=== PATIENT | female | born 1985 | race American Indian/Alaskan Native ===

== ENCOUNTER 2017-05-14 14:43 | Emergency (ER) | payer SELFPAY ==
--- NOTE | 2017-05-14 15:07 | Emergency Department Report ---
ED Dysuria HPI - HPI Chief Complaint: Urogenital-Female Stated Complaint: STD OUTBREAK Time Seen by Provider: 05/14/17 15:01 Duration: 2 Days Severity: Mild Symptoms: Dysuria: No, Frequency: No, Suprapubic Pain: No, Flank Pain: No, Fever : No, Hematuria: No, Abdominal Pain: No, Previous UTI's: No ED Review of Systems ROS: Stated complaint: STD OUTBREAK Other details as noted in HPI Comment: Unobtainable due to pts medical conditions Constitutional: no symptoms reported, see HPI. denies: chills, fever Eyes: as per HPI. denies: eye pain ENT: as per HPI. denies: ear pain, throat pain Respiratory: no symptoms reported, see HPI. denies: cough, orthopnea Cardiovascular: as per HPI. denies: chest pain, palpitations, orthopnea Endocrine: no symptoms reported, see HPI. denies: excessive sweating, flushing , intolerance to cold, intolerance to heat Gastrointestinal: as per HPI. denies: abdominal pain, nausea, vomiting Genitourinary: as per HPI. denies: urgency, dysuria Musculoskeletal: as per HPI. denies: back pain Skin: as per HPI, lesions Neurological: as per HPI. denies: headache, weakness Psychiatric: as per HPI. denies: anxiety, depression Hematological/Lymphatic: as per HPI. denies: easy bleeding ED Past Medical Hx - Past Medical History Previous Medical History?: Yes Hx Seizures: Yes (no meds) Additional medical history: GENITAL HERPES - Surgical History Past Surgical History?: No - Social History Smoking Status: Current Every Day Smoker Substance Use Type: Alcohol - Medications Home Medications: Home Medications Medication Instructions Recorded Confirmed Last Taken Type Acyclovir [Acyclovir Ointment] 1 applicatio TP 5XD #1 tube 05/14/17 Unknown Rx Acyclovir [Zovirax Cap] 200 mg PO 5XD #25 cap 05/14/17 Unknown Rx Dysuria Exam - Exam General: Vital signs noted. No distress. Alert and acting appropriately. KNOWN GENITAL HERPES W OUTBREAK HERE FOR MED REFILL Exam: Yes Moist Mucous Membranes, No CVA Tenderness, No Abdominal Tenderness, No Rigidity or Guarding ED Course Vital Signs 05/14/17 14:47 Temperature 98 F Pulse Rate 80 Respiratory 20 Rate Blood Pressure 170/100 O2 Sat by Pulse 100 Oximetry - Reevaluation(s) Reevaluation #1: 05/14/17 15:13 KNOWN GEN HERPES DX 12-16 ED Medical Decision Making - Medical Decision Making CHRONIC MED REFILL Critical care attestation.: If time is entered above; I have spent that time in minutes in the direct care of this critically ill patient, excluding procedure time. ED Disposition Clinical Impression: Genital herpes Disposition: DC-01 TO HOME OR SELFCARE Is pt being admited?: No Does the pt Need Aspirin: No Condition: Stable Instructions: Genital Herpes Simplex (ED) Additional Instructions: FOLLOW UP WITH PCP OR OB FOR SUPPRESSIVE TREATMENT Prescriptions: Acyclovir [Acyclovir Ointment] 1 applicatio TP 5XD #1 tube Acyclovir [Zovirax Cap] 200 mg PO 5XD #25 cap Referrals: JANNETH SHARMA MD [Referring] - 3-5 Days Time of Disposition: 15:10
[2017-05-14 15:24] VITALS: BP 156/96
== END 2017-05-14 15:24 | disposition home or self-care (01) ==
LOC: ED 14:43
DX: A60.00 Herpesviral infection of urogenital system, unspecified (principal); F17.200 Nicotine dependence, unspecified, uncomplicated
CPT/HCPCS: 99282

== ENCOUNTER 2017-05-20 20:45 | Emergency (ER) | payer OTHER ==
[2017-05-20] MEDS ORDERED: ATIVAN ONE (20:52)
[2017-05-20 21:06] LABS: Basophils % (Auto) 0.1 % (0.0-1.8); Eosinophils % (Auto) 0.8 % (0.0-4.3); Hematocrit 40.4 % (30.3-42.9); Hemoglobin 13.2 gm/dl (10.1-14.3); Mean Corpuscular HGB Conc 33 % (30-34); Mean Corpuscular Hemoglobin 28 pg (28-32); Mean Corpuscular Volume 86 fl (79-97); Platelet Count 481 K/mm3 (140-440); Red Blood Count 4.69 M/mm3 (3.65-5.03); Red Cell Distribution Width 15.5 % (13.2-15.2); White Blood Count 14.3 K/mm3 (4.5-11.0)
[2017-05-20] MEDS ORDERED: ATIVAN IV ONE (21:10)
[2017-05-20 21:16] LABS: INR 0.96 (0.87-1.13)
[2017-05-20 21:22] LABS: Anion Gap 15 mmol/L; BUN/Creatinine Ratio 13; Blood Urea Nitrogen 9 mg/dL (7-17); Calcium 9.2 mg/dL (8.4-10.2); Carbon Dioxide 30 mmol/L (22-30); Chloride 100.7 mmol/L (98-107); Glucose 312 mg/dL (65-100); Potassium 4.2 mmol/L (3.6-5.0); Sodium 141 mmol/L (137-145)
--- NOTE | 2017-05-20 21:27 | Cat Scan Report ---
FINAL REPORT EXAM: CT HEAD/BRAIN WO CON HISTORY: neuro deficits \T\lt; 6hrs or sx present upon awakening TECHNIQUE: CT head without contrast PRIORS: None. FINDINGS: No acute intra-axial or extra-axial hemorrhage is identified. There is no evidence of midline shift or mass effect. The ventricles and sulci are within normal limits. Peters-white matter differentiation is intact. No acute parenchymal abnormalities seen. Bony calvarium is grossly intact. Visualized portions of the mastoids and paranasal sinuses are unremarkable. IMPRESSION: Negative CT head
[2017-05-20] MEDS ORDERED: MORPHINE IV ONE (21:36)
--- NOTE | 2017-05-20 22:20 | Emergency Department Report ---
ED General Adult HPI - General Chief complaint: Seizure Stated complaint: SEIZURE Time Seen by Provider: 05/20/17 21:33 Source: patient, family Mode of arrival: Stretcher Limitations: Physical Limitation - History of Present Illness Initial comments: Patient is a 32-year-old female past medical history of seizures who presents with seizures and left-sided weakness. Patient recently had a seizure today and afterwards she was having left arm weakness. Patient states that she's had multiple seizures in the past however she has not been on any medication for her seizures because she is not employed and has no insurance. Patient states that she has some generalized body pain as a 7 out of 10 is an achy type of pain nothing makes the pain better or worse she denies having any nausea or vomiting. Patient's weakness she states is severe she is able to feel her arm but she is not able to move it. - Related Data Previous Rx's Medication Instructions Recorded Last Taken Type Acyclovir [Acyclovir Ointment] 1 applicatio TP 5XD #1 tube 05/14/17 Unknown Rx Acyclovir [Zovirax Cap] 200 mg PO 5XD #25 cap 05/14/17 Unknown Rx Allergies Allergy/AdvReac Type Severity Reaction Status Date / Time No Known Allergies Allergy Unverified 05/14/17 14:51 ED Review of Systems ROS: Stated complaint: SEIZURE Other details as noted in HPI Constitutional: denies: chills, fever Eyes: denies: eye pain, eye discharge, vision change ENT: denies: ear pain, throat pain Respiratory: denies: cough, shortness of breath, wheezing Cardiovascular: denies: chest pain, palpitations Endocrine: no symptoms reported Gastrointestinal: denies: abdominal pain, nausea, diarrhea Genitourinary: denies: urgency, dysuria, discharge Musculoskeletal: denies: back pain, joint swelling, arthralgia Skin: denies: rash, lesions Neurological: weakness, other (seizure ). denies: headache, paresthesias Psychiatric: denies: anxiety, depression Hematological/Lymphatic: denies: easy bleeding, easy bruising ED Past Medical Hx - Past Medical History Previous Medical History?: Yes Hx Hypertension: Yes Hx Seizures: Yes (no meds) Additional medical history: GENITAL HERPES - Surgical History Past Surgical History?: No - Social History Smoking Status: Current Every Day Smoker Substance Use Type: Marijuana - Medications Home Medications: Home Medications Medication Instructions Recorded Confirmed Last Taken Type Acyclovir [Acyclovir Ointment] 1 applicatio TP 5XD #1 tube 05/14/17 Unknown Rx Acyclovir [Zovirax Cap] 200 mg PO 5XD #25 cap 05/14/17 Unknown Rx ED Physical Exam - General Limitations: Physical Limitation General appearance: alert, in no apparent distress - Head Head exam: Present: atraumatic, normocephalic - Eye Eye exam: Present: normal appearance - ENT ENT exam: Present: mucous membranes moist - Neck Neck exam: Present: normal inspection - Respiratory Respiratory exam: Present: normal lung sounds bilaterally. Absent: respiratory distress - Cardiovascular Cardiovascular Exam: Present: regular rate, normal rhythm. Absent: systolic murmur, diastolic murmur, rubs, gallop - GI/Abdominal GI/Abdominal exam: Present: soft, normal bowel sounds - Extremities Exam Extremities exam: Present: other (patient is unable to move upper left extremity she is able to feel but not able to move Bowser patient is able to withdraw extremities to pain pulses are +2. Refill rest of the extremities or able to move and the rest of her extremities are neurovascularly intact) - Back Exam Back exam: Present: normal inspection - Neurological Exam Neurological exam: Present: alert, oriented X3 - Psychiatric Psychiatric exam: Present: normal affect, normal mood - Skin Skin exam: Present: warm, dry, intact, normal color. Absent: rash ED Course Vital Signs 05/20/17 05/20/17 05/20/17 21:07 21:12 21:15 Temperature 99.2 F Pulse Rate 101 H 96 H 101 H Respiratory 17 18 18 Rate Blood Pressure 136/89 136/89 O2 Sat by Pulse 99 96 98 Oximetry 05/20/17 22:00 Temperature Pulse Rate 100 H Respiratory 21 Rate Blood Pressure 133/102 O2 Sat by Pulse 97 Oximetry ED Medical Decision Making - Lab Data Result diagrams: 05/20/17 20:55 05/20/17 20:55 Lab Results 05/20/17 05/20/17 05/20/17 Range/Units 20:55 20:55 20:55 WBC 14.3 H (4.5-11.0) K/mm3 RBC 4.69 (3.65-5.03) M/mm3 Hgb 13.2 (10.1-14.3) gm/dl Hct 40.4 (30.3-42.9) % MCV 86 (79-97) fl MCH 28 (28-32) pg MCHC 33 (30-34) % RDW 15.5 H (13.2-15.2) % Plt Count 481 H (140-440) K/mm3 Lymph % (Auto) 27.4 (13.4-35.0) % [place] % (Auto) 5.6 (0.0-7.3) % Eos % (Auto) 0.8 (0.0-4.3) % Baso % (Auto) 0.1 (0.0-1.8) % Lymph # 3.9 (1.2-5.4) K/mm3 [place] # 0.8 (0.0-0.8) K/mm3 Eos # 0.1 (0.0-0.4) K/mm3 Baso # 0.0 (0.0-0.1) K/mm3 Seg Neutrophils % 66.1 (40.0-70.0) % Seg Neutrophils # 9.4 H (1.8-7.7) K/mm3 PT 13.3 (12.2-14.9) Sec. INR 0.96 (0.87-1.13) APTT 33.0 (24.2-36.6) Sec. Thrombin Time (15.1-19.6) Sec. Sodium 141 (137-145) mmol/L Potassium 4.2 (3.6-5.0) mmol/L Chloride 100.7 (98-107) mmol/L Carbon Dioxide 30 (22-30) mmol/L Anion Gap 15 mmol/L BUN 9 (7-17) mg/dL Creatinine 0.7 (0.7-1.2) mg/dL Estimated GFR > 60 ml/min BUN/Creatinine Ratio 13 % Glucose 312 H (65-100) mg/dL POC Glucose (70-105) Calcium 9.2 (8.4-10.2) mg/dL Troponin T < 0.010 (0.00-0.029) ng/mL HCG, Qual (Negative) 05/20/17 05/20/17 05/20/17 Range/Units 20:55 20:55 20:58 WBC (4.5-11.0) K/mm3 RBC (3.65-5.03) M/mm3 Hgb (10.1-14.3) gm/dl Hct (30.3-42.9) % MCV (79-97) fl MCH (28-32) pg MCHC (30-34) % RDW (13.2-15.2) % Plt Count (140-440) K/mm3 Lymph % (Auto) (13.4-35.0) % [place] % (Auto) (0.0-7.3) % Eos % (Auto) (0.0-4.3) % Baso % (Auto) (0.0-1.8) % Lymph # (1.2-5.4) K/mm3 [place] # (0.0-0.8) K/mm3 Eos # (0.0-0.4) K/mm3 Baso # (0.0-0.1) K/mm3 Seg Neutrophils % (40.0-70.0) % Seg Neutrophils # (1.8-7.7) K/mm3 PT (12.2-14.9) Sec. INR (0.87-1.13) APTT (24.2-36.6) Sec. Thrombin Time 16.5 (15.1-19.6) Sec. Sodium (137-145) mmol/L Potassium (3.6-5.0) mmol/L Chloride (98-107) mmol/L Carbon Dioxide (22-30) mmol/L Anion Gap mmol/L BUN (7-17) mg/dL Creatinine (0.7-1.2) mg/dL Estimated GFR ml/min BUN/Creatinine Ratio % Glucose (65-100) mg/dL POC Glucose 311 H (70-105) Calcium (8.4-10.2) mg/dL Troponin T (0.00-0.029) ng/mL HCG, Qual Negative (Negative) - EKG Data 05/20/17 23:45 EKG shows sinus rhythm possible left atrial enlargement no ST segment elevations or T-wave inversions. - Radiology Data Radiology results: report reviewed, image reviewed CT head: Shows no acute intracranial pathology - Medical Decision Making Chief medical diagnosis: Thanh's paralysis Differential medical diagnosis: Epilepsy, hyperglycemia, hyponatremia, UTI, TIA UA, CT head, CBC, CMP, EKG, IV pain medication, IV fluids, IV Keppra CT scan of head and all laboratory blood work. Patient is able to move her left extremity she's standing and she wants to leave AMA patient states that she is in too much pain and that she wants to sign out AMA. Discussed with patient the risks and benefits of leaving AMA. Discussed with patient that she needs follow-up with neurologist and gave patient referral. Patient stomped out and states "I don't want her papers." Patient refuses to have any further discussion. Critical care attestation.: If time is entered above; I have spent that time in minutes in the direct care of this critically ill patient, excluding procedure time. ED Disposition Clinical Impression: Seizures, Thanh's paralysis, Generalized pain Disposition: DC-07 LEFT AGAINST MED ADVICE Is pt being admited?: No Does the pt Need Aspirin: No Condition: Stable Referrals: RADHA LOZADA MD [Staff Physician] - 3-5 Days Forms: AMA Form
[2017-05-20 22:25] VITALS: BP 133/102
== END 2017-05-20 22:20 | disposition left against medical advice (07) ==
LOC: ED 20:45
DX: G83.84 Todd's paralysis (postepileptic) (principal); R56.9 Unspecified convulsions; I10 Essential (primary) hypertension; F17.210 Nicotine dependence, cigarettes, uncomplicated; F12.10 Cannabis abuse, uncomplicated
CPT/HCPCS: 36415; 70450; 80048; 82962; 84484; 84703; 85025; 85610; 85670; 85730; 93005; 93010; 96374; 99285; J2060

== ENCOUNTER 2017-08-31 18:26 | Emergency (ER) | payer SELFPAY ==
[2017-08-31 18:51] VITALS: BP 161/96
[2017-08-31 19:15] LABS: Basophils # (Auto) 0.1 K/mm3 (0.0-0.1); Basophils % (Auto) 0.6 % (0.0-1.8); Eosinophils # (Auto) 0.1 K/mm3 (0.0-0.4); Eosinophils % (Auto) 0.3 % (0.0-4.3); Hematocrit 42.5 % (30.3-42.9); Lymphocytes # (Auto) 3.1 K/mm3 (1.2-5.4); Mean Corpuscular HGB Conc 33 % (30-34); Mean Corpuscular Hemoglobin 29 pg (28-32); Mean Corpuscular Volume 88 fl (79-97); Monocytes # (Auto) 1.2 K/mm3 (0.0-0.8); Monocytes % (Auto) 6.4 % (0.0-7.3); Platelet Count 513 K/mm3 (140-440); Red Blood Count 4.84 M/mm3 (3.65-5.03); Red Cell Distribution Width 14.7 % (13.2-15.2)
[2017-08-31 19:29] LABS: BUN/Creatinine Ratio 15; Blood Urea Nitrogen 9 mg/dL (7-17); Calcium 9.9 mg/dL (8.4-10.2); Hemolysis Index 7
[2017-08-31 21:04] LABS: Bilirubin,Urine NEG (Negative); Blood,Urine NEG (Negative); Color,Urine Yellow (Yellow); Mucus,Urine FEW /HPF; Nitrite,Urine NEG (Negative); Protein,Urine <15 mg/dL mg/dL (Negative); Urobilinogen,Urine < 2.0 mg/dL (<2.0)
[2017-09-01] MEDS ORDERED: XYLOCAINE 1% 20 mL ONE (16:02)
== END 2017-08-31 22:00 | disposition left against medical advice (07) ==
LOC: ED 18:26
DX: L02.426 Furuncle of left lower limb (principal); Z53.21 Procedure and treatment not carried out due to patient leaving prior to being seen by health care provider
CPT/HCPCS: 36415; 80048; 81001; 85025

== ENCOUNTER 2017-09-01 01:04 | Inpatient (IN) | payer OTHER ==
[2017-09-01 02:00] LABS: Basophils # (Auto) 0.2 K/mm3 (0.0-0.1); Basophils % (Auto) 1.3 % (0.0-1.8); Eosinophils # (Auto) 0.1 K/mm3 (0.0-0.4); Eosinophils % (Auto) 0.3 % (0.0-4.3); Hematocrit 41.7 % (30.3-42.9); Hemoglobin 13.7 gm/dl (10.1-14.3); Lymphocytes # (Auto) 3.1 K/mm3 (1.2-5.4); Lymphocytes % (Auto) 16.7 % (13.4-35.0); Mean Corpuscular HGB Conc 33 % (30-34); Mean Corpuscular Hemoglobin 29 pg (28-32); Mean Corpuscular Volume 88 fl (79-97); Monocytes # (Auto) 1.1 K/mm3 (0.0-0.8); Monocytes % (Auto) 5.8 % (0.0-7.3); Platelet Count 450 K/mm3 (140-440); Red Blood Count 4.75 M/mm3 (3.65-5.03); Red Cell Distribution Width 14.6 % (13.2-15.2)
[2017-09-01 02:18] LABS: BUN/Creatinine Ratio 13; Blood Urea Nitrogen 8 mg/dL (7-17); Calcium 9.8 mg/dL (8.4-10.2); Hemolysis Index 15
[2017-09-01] MEDS ORDERED: NACL 0.9% 1000 ML 1,000 ML IV ONE ×2 (10:33→12:01)
[2017-09-01] MEDS ORDERED: VANCOMYCIN PHARMACY TO DOSE IV SCH (11:00)
[2017-09-01] MEDS ORDERED: ZOFRAN ONE (11:27)
[2017-09-01] MEDS ORDERED: MORPHINE ONE (11:28)
--- NOTE | 2017-09-01 11:32 | Emergency Department Report ---
ED General Adult HPI - General Chief complaint: Skin/Abscess/Foreign Body Stated complaint: CYST LT THIGH Time Seen by Provider: 09/01/17 10:17 Source: patient Mode of arrival: Ambulatory Limitations: No Limitations - History of Present Illness Initial comments: Patient presents to the emergency department tachycardic and somewhat reticent to give a history. She refers us to her mother. She is conscious and reasonably alert. She just is not very cooperative with answering questions. The mother states that she has had a "cyst" in the left gluteal area for the past several days. When asked the patient does state that she has had some chills. She hasn't measured her temperature though. She has not had a previous I&D area before. When asked if she has a history of MRSA she doesn't respond positively. However she is not giving much of the history. Apparently her mother did state the effected area with a needle. She got some bloody drainage. Eventually the patient appeared ill. She actually according to the nurse arrived in the emergency department completely undressed. Apparently she has a history of polysubstance abuse. -: days(s) Location: buttocks Radiation: non-radiation Quality: aching Consistency: intermittent Improves with: none Worsens with: none Associated Symptoms: fever/chills (as above) Treatments Prior to Arrival: other (attempted drainage by mother) - Related Data Home Medications Medication Instructions Recorded Confirmed Last Taken No Known Home Medications [No 09/01/17 09/01/17 Unknown Reported Home Medications] Allergies Allergy/AdvReac Type Severity Reaction Status Date / Time No Known Allergies Allergy Unverified 05/14/17 14:51 ED Review of Systems ROS: Stated complaint: CYST LT THIGH Other details as noted in HPI Comment: Unobtainable due to pts medical conditions ED Past Medical Hx - Past Medical History Previous Medical History?: No Hx Hypertension: Yes Hx Seizures: Yes (no meds) Additional medical history: GENITAL HERPES, Boil - Surgical History Past Surgical History?: No - Social History Smoking Status: Current Some Day Smoker Substance Use Type: Cocaine, Marijuana, Tranquilizers, Methamphetamines - Medications Home Medications: Home Medications Medication Instructions Recorded Confirmed Last Taken Type No Known Home Medications [No 09/01/17 09/01/17 Unknown History Reported Home Medications] ED Physical Exam - General Limitations: No Limitations General appearance: lethargic - Head Head exam: Present: atraumatic, normocephalic - Eye Eye exam: Present: normal appearance, PERRL, EOMI. Absent: scleral icterus - ENT ENT exam: Present: mucous membranes moist - Neck Neck exam: Present: normal inspection. Absent: tenderness, meningismus - Respiratory Respiratory exam: Present: normal lung sounds bilaterally. Absent: respiratory distress - Cardiovascular Cardiovascular Exam: Present: normal rhythm, tachycardia. Absent: systolic murmur, diastolic murmur, rubs, gallop - GI/Abdominal GI/Abdominal exam: Present: soft, normal bowel sounds. Absent: distended, tenderness, guarding, rebound, rigid - Extremities Exam Extremities exam: Present: normal inspection - Back Exam Back exam: Present: normal inspection - Neurological Exam Neurological exam: Present: alert, oriented X3, CN II-XII intact. Absent: motor sensory deficit - Psychiatric Psychiatric exam: Present: normal affect, normal mood - Skin Skin exam: Present: warm, dry, intact, normal color, other (approximately 6cm in diameter tender, erythematous mass noted left gluteal folds posteriorly. Possibly fluctuant. No gross cellulitis. No evidence of necrosis or anything resembling a Tea syndrome.). Absent: rash ED Course Vital Signs 09/01/17 09/01/17 09/01/17 01:30 09:04 09:06 Temperature 98.8 F 99.6 F Pulse Rate 126 H 113 H Respiratory 18 25 H 25 H Rate Blood Pressure 137/103 Blood Pressure 123/91 [Right] O2 Sat by Pulse 100 97 97 Oximetry 09/01/17 09/01/17 11:39 13:35 Temperature Pulse Rate 110 H 108 H Respiratory 16 18 Rate Blood Pressure Blood Pressure 98/60 116/71 [Right] O2 Sat by Pulse 96 97 Oximetry - Reevaluation(s) Reevaluation #1: The patient was given bolus fluids. She was presumed to be septic. She is hyperglycemic. She was given insulin. She was given empiric antibiotics coverage with Zosyn and vancomycin. I discussed her CT reports with Dr. Mendenhall. He stated that there are no findings consistent with Tea syndrome nor with a pelvic or intra-abdominal abscess. 09/01/17 14:43 ED Medical Decision Making - Lab Data Result diagrams: 09/01/17 01:41 09/01/17 01:41 Laboratory Results - last 24 hr 09/01/17 09/01/17 01:41 01:41 WBC 18.4 H RBC 4.75 Hgb 13.7 Hct 41.7 MCV 88 MCH 29 MCHC 33 RDW 14.6 Plt Count 450 H Lymph % (Auto) 16.7 [place] % (Auto) 5.8 Eos % (Auto) 0.3 Baso % (Auto) 1.3 Lymph # 3.1 [place] # 1.1 H Eos # 0.1 Baso # 0.2 H Seg Neutrophils % 75.9 H Seg Neutrophils # 13.9 H Sodium 135 L Potassium 4.2 Chloride 93.9 L Carbon Dioxide 28 Anion Gap 17 BUN 8 Creatinine 0.6 L Estimated GFR > 60 BUN/Creatinine Ratio 13 Glucose 355 H Calcium 9.8 Critical care attestation.: If time is entered above; I have spent that time in minutes in the direct care of this critically ill patient, excluding procedure time. 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
[2017-09-01 11:33] LABS: INR 0.96 (0.87-1.13)
[2017-09-01] MEDS ORDERED: ZOFRAN IV ONE (11:36)
[2017-09-01] MEDS ORDERED: MORPHINE IV ONE ×2 (11:37→17:15)
[2017-09-01 11:41] LABS: Alanine Aminotransferase 12 units/L (7-56); Albumin 3.9 g/dL (3.9-5); Bilirubin,Direct < 0.2 mg/dL (0-0.2)
--- NOTE | 2017-09-01 12:15 | Consultation ---
History of Present Illness Consult date: 09/01/17 Reason for consult: other (perianal abscess) Requesting physician: ADILENE GROSS Chief complaint: perianal pain x 2 days - History of present illness History of present illness: 32yo F, noncompliant with medical care, presents with 2 day history of perianal pain. Reports that this happens about once a year for the last few years. usually occurs on the left side. This is the largest it has ever been. No drainage until mom tried to "pop" it with a needle. Small amount of bloody drainage occurred. +F/C. No abdominal pain. Able to urinate. Pain with BM. Past History Past Medical History: diabetes, hypertension (does not take meds), seizures ( last one was about 2 months ago. Does not take meds), other (genital herpes) Past Surgical History: Other (drainage of perianal abscesses) Social history: single, smoking (4 cigarettes daily), alcohol abuse (binge drinking about once a month), other (drugs - cocaine (within last 48hrs), meth, marijuana) Family history: no significant family history Medications and Allergies Allergies Allergy/AdvReac Type Severity Reaction Status Date / Time No Known Allergies Allergy Unverified 05/14/17 14:51 Home Medications Medication Instructions Recorded Confirmed Last Taken Type No Known Home Medications [No 09/01/17 09/01/17 Unknown History Reported Home Medications] Active Meds: Active Medications Piperacillin Sod/Tazobactam Sod (Zosyn/Ns 4.5gm/100ml) 4.5 gm in 100 mls @ 200 mls/hr IV ONCE.ED ONE Stop: 09/01/17 12:59 Vancomycin HCl 2,000 mg/ (Sodium Chloride) 520 mls @ 250 mls/hr IV Q8H KENNEY Sodium Chloride (Nacl 0.9% 1000 Ml) 1,000 mls @ 999 mls/hr IV BOLUS ONE Stop: 09/01/17 13:01 Last Admin: 09/01/17 12:08 Dose: 999 mls/hr Vancomycin HCl (Vancomycin Pharmacy To Dose) 1 each IV PKCONSULT KENNEY PRN Reason: Protocol Review of Systems - Constitutional fever, chills, sweats - Cardiovascular no chest pain - Respiratory cough (last few days), no shortness of breath - Gastrointestinal BRBPR (after mom tried to alli it), no abdominal pain, no nausea, no vomiting, no diarrhea, no indigestion - Genitourinary Genitourinary: no difficulty voiding - Integumentary boils (on inner aspect of left thigh) - Neurological seizures (2 months ago), headaches (currently) - Hematologic/Lymphatic no easy bruising, no easy bleeding Exam Vital Signs Temp Pulse Resp BP Pulse Ox 98.8 F 126 H 18 137/103 100 09/01/17 01:30 09/01/17 01:30 09/01/17 01:30 09/01/17 01:30 09/01/17 01:30 - General physical appearance Positive: well developed, well nourished, no distress - Eyes Positive: normal occular movement - Respiratory Positive: normal expansion, normal respiratory effort - Abdomen Abdomen: Present: soft. Absent: tender - Rectum Rectum: mass (7cm in diameter tender, erythematous mass noted along the ro- left area that extends towards the left labia. Another area of induration is noted in the postero-left side of the left buttock- about 6cmin diameter. No erythema noted. Both are tender to the touch. ) - Neurologic Neurologic: alert and oriented to time, place and person, motor strength and sensation are grossly intact - Psychiatric Psychiatric: appropriate mood/affect, intact judgment & insight Results - Labs 09/01/17 01:41 09/01/17 01:41 Abnormal lab results 09/01/17 09/01/17 09/01/17 Range/Units 01:41 01:41 11:46 WBC 18.4 H (4.5-11.0) K/mm3 Plt Count 450 H (140-440) K/mm3 [place] # 1.1 H (0.0-0.8) K/mm3 Baso # 0.2 H (0.0-0.1) K/mm3 Seg Neutrophils % 75.9 H (40.0-70.0) % Seg Neutrophils # 13.9 H (1.8-7.7) K/mm3 Sodium 135 L (137-145) mmol/L Chloride 93.9 L (98-107) mmol/L Creatinine 0.6 L (0.7-1.2) mg/dL Glucose 355 H (65-100) mg/dL POC Glucose 260 H (70-105) Diabetes panel 09/01/17 09/01/17 Range/Units 01:41 11:01 Sodium 135 L (137-145) mmol/L Potassium 4.2 (3.6-5.0) mmol/L Chloride 93.9 L (98-107) mmol/L Carbon Dioxide 28 (22-30) mmol/L BUN 8 (7-17) mg/dL Creatinine 0.6 L (0.7-1.2) mg/dL Glucose 355 H (65-100) mg/dL Calcium 9.8 (8.4-10.2) mg/dL AST 8 (5-40) units/L ALT 12 (7-56) units/L Alkaline Phosphatase 116 (35-129) units/L Total Protein 7.4 (6.3-8.2) g/dL Albumin 3.9 (3.9-5) g/dL Calcium panel 09/01/17 09/01/17 Range/Units 01:41 11:01 Calcium 9.8 (8.4-10.2) mg/dL Albumin 3.9 (3.9-5) g/dL Pituitary panel 09/01/17 Range/Units 01:41 Sodium 135 L (137-145) mmol/L Potassium 4.2 (3.6-5.0) mmol/L Chloride 93.9 L (98-107) mmol/L Carbon Dioxide 28 (22-30) mmol/L BUN 8 (7-17) mg/dL Creatinine 0.6 L (0.7-1.2) mg/dL Glucose 355 H (65-100) mg/dL Calcium 9.8 (8.4-10.2) mg/dL Adrenal panel 09/01/17 09/01/17 Range/Units 01:41 11:01 Sodium 135 L (137-145) mmol/L Potassium 4.2 (3.6-5.0) mmol/L Chloride 93.9 L (98-107) mmol/L Carbon Dioxide 28 (22-30) mmol/L BUN 8 (7-17) mg/dL Creatinine 0.6 L (0.7-1.2) mg/dL Glucose 355 H (65-100) mg/dL Calcium 9.8 (8.4-10.2) mg/dL Total Bilirubin 0.50 (0.1-1.2) mg/dL AST 8 (5-40) units/L ALT 12 (7-56) units/L Alkaline Phosphatase 116 (35-129) units/L Total Protein 7.4 (6.3-8.2) g/dL Albumin 3.9 (3.9-5) g/dL - Imaging CT scan - pelvis: report reviewed, image reviewed Assessment and Plan - Patient Problems (1) Perianal abscess Onset Date: ~08/30/17 Current Visit: Yes Status: Acute Plan to address problem: Pt with moderate sized, symptomatic perianal abscess. CT reviewed no evidence to suggest there is a deeper or more complicated component. Will do I&D at bedside. procedure, risks, benefits, alternatives explained. Pt wishes to proceed with I&D. Written consent obtained. Time=60min
[2017-09-01] MEDS ORDERED: ZOSYN/NS 4.5GM/100ML 4.5 GM/100 ML VIAL IV ONE (12:30)
[2017-09-01] MEDS ORDERED: VANCOMYCIN 2,000 MG in NACL 0.9% 500 ML 500 ML IV SCH (13:00)
--- NOTE | 2017-09-01 13:54 | Cat Scan Report ---
CT abdomen and pelvis with contrast: Perianal versus perirectal abscess; diabetic. Transverse images are obtained from lower chest to the ischium following IV contrast. Coronal and sagittal 2-D reformatted images included. The visualized lungs are clear. The abdominal and retroperitoneal organs appear normal. The unopacified bowel and mesentery appear normal. The appendix is identified and if so shows no inflammatory changes. There is enlargement of the left adnexa possibly being cystic. Sections through the perineum demonstrates a hazy increased opacity between the rectum and the left ischium. This is consistent with clinical findings. No evidence of abscess and no abnormal gas accumulation. Also of note is a slight amount of increased edematous-looking tissue to the left of the vagina/urethra. There is a metallic ring in the lower vagina. Impressions: 1. Left perirectal inflammation without evidence of abscess. 2. Left vaginal/urethral inflammation. 3. Left ovarian enlargement most likely cyst.
[2017-09-01 14:00] LABS: Bacteria,Urine 1+ /HPF (Negative); Bilirubin,Urine NEG (Negative); Blood,Urine NEG (Negative); Color,Urine Yellow (Yellow); Mucus,Urine FEW /HPF; Nitrite,Urine NEG (Negative); Protein,Urine <15 mg/dL mg/dL (Negative); Urobilinogen,Urine < 2.0 mg/dL (<2.0)
[2017-09-01 14:01] LABS: HCG Qualitative,Urine Negative (Negative)
[2017-09-01 14:18] LABS: Amphetamine Screen,Urine PRESUMPTIVE NEGATIVE; Cannabinoid Screen,Urine PRESUMPTIVE NEGATIVE; Methadone Screen,Urine PRESUMPTIVE NEGATIVE; Opiate Screen,Urine PRESUMPTIVE NEGATIVE
[2017-09-01 14:32] LABS: Benzodiazepines Screen,Urine PRESUMPTIVE POSITIVE; Cocaine Screen,Urine PRESUMPTIVE POSITIVE
--- NOTE | 2017-09-01 14:35 | History and Physical Report ---
History of Present Illness Chief complaint: I have a sore on my butt cheek History of present illness: 32 YO Female with Obesity, DM, HTN, HSV, Nicotine Dependence, Seizure Disorder, Medication Noncompliance, Polysubstance Abuse presents to ED for evaluation. Pt states that she has experienced a bump on her left thigh 5 days ago, and her mother attempted to "pop it" by sticking it with a needle. Pt states that she has experienced worsening redness and pain in her thigh since that time. Pt acknowledges subjective fever, but denies chills, CP, Palpitations, NVD, Syncope, Trauma, BRBPR, productive cough, or recent ill contacts. Pt seen and evaluated in ED and found to have UTI and Sepsis. Pt admitted to ICU. Surgery consulted in ED and patient underwent I&D of left gluteal abscess at the bedside. Past History Past Medical History: diabetes, hypertension (does not take meds), seizures ( last one was about 2 months ago. Does not take meds), other (genital herpes) Past Surgical History: Other (drainage of perianal abscesses) Social history: single, smoking (4 cigarettes daily), alcohol abuse (binge drinking about once a month), other (drugs - cocaine (within last 48hrs), meth, marijuana) Family history: no significant family history Medications and Allergies Allergies Allergy/AdvReac Type Severity Reaction Status Date / Time No Known Allergies Allergy Unverified 05/14/17 14:51 Home Medications Medication Instructions Recorded Confirmed Last Taken Type No Known Home Medications [No 09/01/17 09/01/17 Unknown History Reported Home Medications] Active Meds: Active Medications Vancomycin HCl 2,000 mg/ (Sodium Chloride) 520 mls @ 250 mls/hr IV Q8H [facility] Vancomycin HCl (Vancomycin Pharmacy To Dose) 1 each IV [facility]NEY PRN Reason: Protocol Review of Systems Constitutional: no weight loss, no weight gain, no fever, no chills Ears, nose, mouth and throat: no ear pain, no ear discharge, no tinnitis, no decreased hearing, no nose pain Breasts: no change in shape, no swelling, no mass Cardiovascular: no chest pain, no orthopnea, no palpitations, no rapid/ irregular heart beat, no edema Respiratory: no cough, no cough with sputum, no excessive sputum, no hemoptysis Gastrointestinal: no abdominal pain, no nausea, no vomiting, no diarrhea, no constipation Genitourinary Female: no pelvic pain, no flank pain, no menorrhagia, no dysuria , no urinary frequency, no urgency, no stress incontinence Rectal: no pain, no incontinence, no bleeding Musculoskeletal: no neck stiffness, no neck pain, no shooting arm pain, no arm numbness/tingling, no low back pain, no shooting leg pain Integumentary: rash, no pruritis, no redness, no sores, no jaundice Neurological: no head injury, no paralysis, no weakness, no parathesias, no numbness, no tingling, no seizures Psychiatric: no anxiety, no memory loss, no change in sleep habits, no sleep disturbances, no insomnia, no hypersomnia, no change in appetite Endocrine: no cold intolerance, no heat intolerance, no polyphagia, no excessive thirst, no polydipsia, no polyuria, no nocturia, no excessive sweating Hematologic/Lymphatic: no easy bruising, no easy bleeding, no lymphadenopathy, no lymphedema Allergic/Immunologic: no urticaria, no allergic rhinitis, no wheezing, no persistent infections, no anaphylaxis Exam - Constitutional Vitals: Temp Pulse Resp BP Pulse Ox 99.6 F 108 H 18 116/71 97 09/01/17 09:04 09/01/17 13:35 09/01/17 13:35 09/01/17 13:35 09/01/17 13:35 General appearance: Present: mild distress - EENT Eyes: Present: PERRL ENT: hearing intact, clear oral mucosa - Neck Neck: Present: supple, normal ROM - Respiratory Respiratory: bilateral: diminished - Cardiovascular Heart Sounds: Present: S1 & S2. Absent: rub, click - Extremities Extremities: pulses symmetrical, No edema Peripheral Pulses: within normal limits - Abdominal General gastrointestinal: Present: soft, non-tender, non-distended, normal bowel sounds Female genitourinary: Present: normal - Integumentary Integumentary: Present: clear, dry, erythema, rash (left gluteal region) - Musculoskeletal Musculoskeletal: gait normal, strength equal bilaterally - Psychiatric Psychiatric: appropriate mood/affect, intact judgment & insight Results - Labs CBC & Chem 7: 09/01/17 01:41 09/01/17 01:41 Labs: Abnormal lab results 09/01/17 09/01/17 09/01/17 Range/Units 01:41 01:41 11:46 WBC 18.4 H (4.5-11.0) K/mm3 Plt Count 450 H (140-440) K/mm3 [place] # 1.1 H (0.0-0.8) K/mm3 Baso # 0.2 H (0.0-0.1) K/mm3 Seg Neutrophils % 75.9 H (40.0-70.0) % Seg Neutrophils # 13.9 H (1.8-7.7) K/mm3 Sodium 135 L (137-145) mmol/L Chloride 93.9 L (98-107) mmol/L Creatinine 0.6 L (0.7-1.2) mg/dL Glucose 355 H (65-100) mg/dL POC Glucose 260 H (70-105) Urine WBC (Auto) (0.0-6.0) /HPF U Epithel Cells (Auto) (0-13.0) /HPF 09/01/17 Range/Units 13:31 WBC (4.5-11.0) K/mm3 Plt Count (140-440) K/mm3 [place] # (0.0-0.8) K/mm3 Baso # (0.0-0.1) K/mm3 Seg Neutrophils % (40.0-70.0) % Seg Neutrophils # (1.8-7.7) K/mm3 Sodium (137-145) mmol/L Chloride (98-107) mmol/L Creatinine (0.7-1.2) mg/dL Glucose (65-100) mg/dL POC Glucose (70-105) Urine WBC (Auto) 33.0 H (0.0-6.0) /HPF U Epithel Cells (Auto) 14.0 H (0-13.0) /HPF Assessment and Plan - Patient Problems (1) Sepsis Current Visit: Yes Status: Acute Qualifiers: Sepsis type: sepsis due to unspecified organism Qualified Code(s): A41.9 - Sepsis, unspecified organism Plan to address problem: IV abx, serial lactic acid, CT abdomen/pelvis, monitor uop q shift, blood cultures, urinalysis, (2) Diabetes Current Visit: Yes Status: Acute Plan to address problem: ADA diet, insulin, accu check (3) UTI (urinary tract infection) Current Visit: Yes Status: Acute Qualifiers: Encounter type: initial encounter Plan to address problem: IV abx, urinalysis, supportive care, monitor uop q shift, (4) HTN (hypertension) Current Visit: Yes Status: Acute Qualifiers: Hypertension type: essential hypertension Qualified Code(s): I10 - Essential (primary) hypertension Plan to address problem: monitor bp q shift, IV hydralazine prn, continue medical management (5) Polysubstance (excluding opioids) dependence Current Visit: Yes Status: Acute (6) Gluteal abscess Current Visit: Yes Status: Acute Plan to address problem: surgery consulted, Pt S/P I&D at bedside, supportive care. (7) DVT prophylaxis Current Visit: Yes Status: Acute
[2017-09-01] MEDS ORDERED: DULCOLAX PR PRN (14:37)
[2017-09-01] MEDS ORDERED: PROVENTIL IH PRN (14:37)
[2017-09-01] MEDS ORDERED: MILK OF MAGNESIA PO PRN (14:37)
[2017-09-01] MEDS ORDERED: NACL 0.9% 1000 ML IV ONE (14:38)
[2017-09-01] MEDS ORDERED: ALUM-MAG HYDROX-SIMETH 200-200-20MG/5ML PO PRN (14:52)
--- NOTE | 2017-09-01 15:46 | XRay Report ---
PORTABLE CHEST: Hypertension An AP portable view of the chest demonstrates a normal cardiac contour considering the limits of this technique. The lungs are clear with no evidence of infiltrate, fluid or failure. IMPRESSION: Normal portable chest.
[2017-09-01] MEDS ORDERED: NACL 0.9% IV SCH (16:00)
[2017-09-01] MEDS ORDERED: NACL 0.9% 1000 ML 1,000 ML ONE (16:09)
[2017-09-01] MEDS ORDERED: NACL 0.9% 500 ML IR ONE (16:40)
--- NOTE | 2017-09-01 18:31 | Procedure Note ---
Date of procedure: 09/01/17 Pre-op diagnosis: perianal abscess Post-op diagnosis: same Procedure: Incision and drainage of perianal abscess (CPT 12226) Written consent obtained. Sterile prep was done. 1% lidocaine was used to anesthetize the area. Finder needle was used to confirm location of abscess pocket. transverse incision was made. Abscess cavity was about 4cm in diameter. Wound was irrigated and packed with iodoform gauze. Pt tolerated the procedure well. Findings: large amount of purulent material Implants: iodoform packing Anesthesia: local Surgeon: DASHA AVENDANO Estimated blood loss: none Pathology: none Condition: critical Disposition: other (ED)
[2017-09-01] MEDS: ZOSYN/NS 4.5GM/100ML 4.5 GM/100 ML VIAL IV SCH (18:54)
[2017-09-02] MEDS: PERCOCET 5/325 PO PRN ×2 (00:33→20:35)
[2017-09-02] MEDS: ZOSYN/NS 4.5GM/100ML 4.5 GM/100 ML VIAL IV SCH ×3 (02:26→20:34)
[2017-09-02] MEDS: BENADRYL IV PRN ×2 (02:27→20:34)
[2017-09-02] MEDS: VANCOMYCIN 2,000 MG in NACL 0.9% 500 ML 500 ML IV SCH ×2 (03:00→15:00)
--- NOTE | 2017-09-02 11:26 | Progress Note ---
Assessment and Plan - Patient Problems (1) Perianal abscess Onset Date: ~08/30/17 Current Visit: Yes Status: Acute Plan to address problem: s/p I&D - POD#1. Pt stable. Sx's are much improved. Depending on disposition plan, can either remove packing this evening or tomorrow. Thereafter, will need to Sitz baths after every BM. needs to be done at least 3-4 times a day. can follow-up with me in the office in 2 weeks. Please call if there are any questions. Thank you. Subjective Date of service: 09/02/17 Patient Reports: Positive: pain is less (The abscess area is much better. She can actually sit better now. ), other (She is having issues with dizziness, headache, not feeling normal, etc. ) Objective Vital Signs - 12hr 09/02/17 09/02/17 09/02/17 00:33 01:33 04:51 Temperature 98.7 F Pulse Rate 97 H Respiratory 18 Rate Blood Pressure 138/63 O2 Sat by Pulse 99 Oximetry - General physical appearance well developed, well nourished, other (mildly anxious) - Respiratory normal expansion, normal respiratory effort - Psychiatric oriented to time, oriented to person, oriented to place, speech is normal, memory intact - Labs 09/01/17 01:41 09/01/17 01:41 Diabetes panel 09/01/17 Range/Units 11:01 AST 8 (5-40) units/L ALT 12 (7-56) units/L Alkaline Phosphatase 116 (35-129) units/L Total Protein 7.4 (6.3-8.2) g/dL Albumin 3.9 (3.9-5) g/dL Calcium panel 09/01/17 Range/Units 11:01 Albumin 3.9 (3.9-5) g/dL Adrenal panel 09/01/17 Range/Units 11:01 Total Bilirubin 0.50 (0.1-1.2) mg/dL AST 8 (5-40) units/L ALT 12 (7-56) units/L Alkaline Phosphatase 116 (35-129) units/L Total Protein 7.4 (6.3-8.2) g/dL Albumin 3.9 (3.9-5) g/dL
--- NOTE | 2017-09-02 17:22 | Progress Note ---
Assessment and Plan Assessment and plan: Patient is a 32-year-old woman with multiple tattoos presents with buttock cyst 09/01/2017 CT abdomen and pelvis with IV contrast reported as Impressions: Left perirectal inflammation without evidence of abscess. 2. Left vaginal/ urethral inflammation. 3. Left ovarian enlargement most likely cyst. pCXR Normal portable chest. -Sepsis cellulitis with gluteal abscess s/p I-n-D: continue iv abx, follow cultures -Perianal abscess s/p i-n-d -UTI: treat with abx, follow cultures -Cocaine and BZD in UDS, mother worried about "labeling" her daughter a drug addict instead of treating her daughter addiction it appears -Uncontrolled DM with hyperglycemia, hyposomolar with hyponatremia, poa: treat with insulin, ivf, get a1c -DVT prophylaxis: scd and sq heparin History Interval history: Patient was seen and examined. Follow-up on current diagnosis of Buttock abscess. Overnight uneventful. Patient denies any chest pain, shortness breath , nausea/vomiting or severe headaches. Imaging, nursing note, chart, labs and old chart reviewed. Discussed with patient. Mother at bedside. Hospitalist Physical - Physical exam Narrative exam: GEN: WDWN, NAD, AWAKE, ALERT, ORIENTATED 3 HEENT: NCAT, EOMI, PERRL, OP Clear NECK: supple, no adenopathy, no thyromegaly, no JVD CVS/HEART: RRR, NORMAL S1S2, NO JVD, pulses present bilaterally CHEST/LUNGS: CTA B, Symmetrical chest expansion, good air entry bilaterally GI/Abdomen: soft, NTND, good bowel sounds, no guarding or rebound /Bladder: no suprapubic tenderness, no CVA or paraspinal tenderness, buttock abscess with surrounding cellulitis present EXT/Skin: no c/c/e, no obvious rash, head to ankles tattoos MSK: FROM x 4 Neuro: CN 2-12 grossly intact, no new focal deficits Psych: calm - Constitutional Vitals: Temp Pulse Resp BP Pulse Ox 99.5 F 97 H 20 118/76 97 09/02/17 08:30 09/02/17 08:30 09/02/17 08:30 09/02/17 08:30 09/02/17 12:10 General appearance: Absent: mild distress Results - Labs CBC & Chem 7: 09/01/17 01:41 09/01/17 01:41 Labs: Laboratory Last Values WBC 18.4 K/mm3 (4.5-11.0) H 09/01/17 01:41 RBC 4.75 M/mm3 (3.65-5.03) 09/01/17 01:41 Hgb 13.7 gm/dl (10.1-14.3) 09/01/17 01:41 Hct 41.7 % (30.3-42.9) 09/01/17 01:41 MCV 88 fl (79-97) 09/01/17 01:41 MCH 29 pg (28-32) 09/01/17 01:41 MCHC 33 % (30-34) 09/01/17 01:41 RDW 14.6 % (13.2-15.2) 09/01/17 01:41 Plt Count 450 K/mm3 (140-440) H 09/01/17 01:41 Lymph % (Auto) 16.7 % (13.4-35.0) 09/01/17 01:41 [place] % (Auto) 5.8 % (0.0-7.3) 09/01/17 01:41 Eos % (Auto) 0.3 % (0.0-4.3) 09/01/17 01:41 Baso % (Auto) 1.3 % (0.0-1.8) 09/01/17 01:41 Lymph # 3.1 K/mm3 (1.2-5.4) 09/01/17 01:41 [place] # 1.1 K/mm3 (0.0-0.8) H 09/01/17 01:41 Eos # 0.1 K/mm3 (0.0-0.4) 09/01/17 01:41 Baso # 0.2 K/mm3 (0.0-0.1) H 09/01/17 01:41 Seg Neutrophils % 75.9 % (40.0-70.0) H 09/01/17 01:41 Seg Neutrophils # 13.9 K/mm3 (1.8-7.7) H 09/01/17 01:41 PT 13.3 Sec. (12.2-14.9) 09/01/17 11:01 INR 0.96 (0.87-1.13) 09/01/17 11:01 Sodium 135 mmol/L (137-145) L 09/01/17 01:41 Potassium 4.2 mmol/L (3.6-5.0) 09/01/17 01:41 Chloride 93.9 mmol/L (98-107) L 09/01/17 01:41 Carbon Dioxide 28 mmol/L (22-30) 09/01/17 01:41 Anion Gap 17 mmol/L 09/01/17 01:41 BUN 8 mg/dL (7-17) 09/01/17 01:41 Creatinine 0.6 mg/dL (0.7-1.2) L 09/01/17 01:41 Estimated GFR > 60 ml/min 09/01/17 01:41 BUN/Creatinine Ratio 13 % 09/01/17 01:41 Glucose 355 mg/dL (65-100) H 09/01/17 01:41 POC Glucose 260 (70-105) H 09/01/17 11:46 Lactic Acid 1.60 mmol/L (0.7-2.0) 09/01/17 23:30 Calcium 9.8 mg/dL (8.4-10.2) 09/01/17 01:41 Total Bilirubin 0.50 mg/dL (0.1-1.2) 09/01/17 11:01 Direct Bilirubin < 0.2 mg/dL (0-0.2) 09/01/17 11:01 Indirect Bilirubin 0.3 mg/dL 09/01/17 11:01 AST 8 units/L (5-40) 09/01/17 11:01 ALT 12 units/L (7-56) 09/01/17 11:01 Alkaline Phosphatase 116 units/L (35-129) 09/01/17 11:01 Total Protein 7.4 g/dL (6.3-8.2) 09/01/17 11:01 Albumin 3.9 g/dL (3.9-5) 09/01/17 11:01 Albumin/Globulin Ratio 1.1 % 09/01/17 11:01 HCG, Qual Negative (Negative) 09/01/17 11:53 Urine Color Yellow (Yellow) 09/01/17 13:31 Urine Turbidity Clear (Clear) 09/01/17 13:31 Urine pH 6.0 (5.0-7.0) 09/01/17 13:31 Ur Specific [place] 1.023 (1.003-1.030) 09/01/17 13:31 Urine Protein <15 mg/dl mg/dL (Negative) 09/01/17 13:31 Urine Glucose (UA) >=500 mg/dL (Negative) 09/01/17 13:31 Urine Ketones Neg mg/dL (Negative) 09/01/17 13:31 Urine Blood Neg (Negative) 09/01/17 13:31 Urine Nitrite Neg (Negative) 09/01/17 13:31 Urine Bilirubin Neg (Negative) 09/01/17 13:31 Urine Urobilinogen < 2.0 mg/dL (<2.0) 09/01/17 13:31 Ur Leukocyte Esterase Mod (Negative) 09/01/17 13:31 Urine WBC (Auto) 33.0 /HPF (0.0-6.0) H 09/01/17 13:31 Urine RBC (Auto) 7.0 /HPF (0.0-6.0) 09/01/17 13:31 U Epithel Cells (Auto) 14.0 /HPF (0-13.0) H 09/01/17 13:31 Urine Bacteria (Auto) 1+ /HPF (Negative) 09/01/17 13:31 Urine Mucus Few /HPF 09/01/17 13:31 Urine HCG, Qual Negative (Negative) 09/01/17 13:31 Urine Opiates Screen Presumptive negative 09/01/17 13:31 Urine Methadone Screen Presumptive negative 09/01/17 13:31 Ur Barbiturates Screen Presumptive negative 09/01/17 13:31 Ur Phencyclidine Scrn Presumptive negative 09/01/17 13:31 Ur Amphetamines Screen Presumptive negative 09/01/17 13:31 U Benzodiazepines Scrn Presumptive positive 09/01/17 13:31 Urine Cocaine Screen Presumptive positive 09/01/17 13:31 U Marijuana (THC) Screen Presumptive negative 09/01/17 13:31 Drugs of Abuse Note Disclamer 09/01/17 13:31
[2017-09-02] MEDS ORDERED: D50W (25GM) Syringe IV PRN (17:33)
[2017-09-03] MEDS: NOVOLOG SUB-Q SCH ×3 (00:40→12:11)
[2017-09-03] MEDS: ZOSYN/NS 4.5GM/100ML 4.5 GM/100 ML VIAL IV SCH ×2 (02:17→10:35)
[2017-09-03] MEDS: VANCOMYCIN 2,000 MG in NACL 0.9% 500 ML 500 ML IV SCH (02:26)
[2017-09-03] MEDS: BENADRYL IV PRN (02:34)
[2017-09-03] MEDS: PERCOCET 5/325 PO PRN (04:12)
[2017-09-03 07:44] LABS: Hematocrit 34.5 % (30.3-42.9); Hemoglobin 11.4 gm/dl (10.1-14.3); Mean Corpuscular HGB Conc 33 % (30-34); Mean Corpuscular Hemoglobin 29 pg (28-32); Mean Corpuscular Volume 88 fl (79-97); Platelet Count 379 K/mm3 (140-440); Red Blood Count 3.94 M/mm3 (3.65-5.03); Red Cell Distribution Width 14.3 % (13.2-15.2)
[2017-09-03 08:03] LABS: BUN/Creatinine Ratio 12; Blood Urea Nitrogen 7 mg/dL (7-17); Calcium 8.7 mg/dL (8.4-10.2); Hemolysis Index 12
[2017-09-03 09:02] VITALS: BP 97/64
--- NOTE | 2017-09-03 12:09 | Progress Note ---
Assessment and Plan Assessment and plan: Patient is a 32-year-old woman with a history of multiple tattoos, diabetes mellitus type 2, obesity BMI 41.1 who presented with buttock abscess. 09/01/2017 CT abdomen and pelvis with IV contrast reported as Impressions: Left perirectal inflammation without evidence of abscess. 2. Left vaginal/ urethral inflammation. 3. Left ovarian enlargement most likely cyst. pCXR Normal portable chest. -Sepsis cellulitis with gluteal abscess s/p I-n-D: continue iv abx, on IV vanc and iv zosyn, follow cultures -Perianal abscess s/p i-n-d, Charge nurse Erlin was the polysomnography technologist. -UTI: treat with abx, follow cultures -Cocaine and BZD in UDS, mother worried about "labeling" her daughter a drug addict instead of treating her daughter's addiction it appears -Uncontrolled DM with hyperglycemia, hyposomolar with hyponatremia, poa: treat with insulin, ivf, get a1c==>10.1 very poor control, parliamentary counsel on compliance done. -DVT prophylaxis: scd and sq heparin 09/03/2017: It appears Wound care nurse has not come to evaluate; therefore, I will order wound cultures. The IV in the hand is not in a good location and it is causing some discomfort, will need at least 2 more days of iv abx; therefore , will order PICC line. Continue sitz bath. Ordered urine and wound cultures. History Interval history: Patient was seen and examined. Follow-up on current diagnosis of Buttock abscess. Overnight uneventful. Patient denies any chest pain, shortness breath , nausea/vomiting or severe headaches. Imaging, nursing note, chart, labs and old chart reviewed. Discussed with patient. Mother at bedside. Hospitalist Physical - Physical exam Narrative exam: GEN: WDWN, NAD, AWAKE, ALERT, ORIENTATED 3 HEENT: NCAT, EOMI, PERRL, OP Clear NECK: supple, no adenopathy, no thyromegaly, no JVD CVS/HEART: RRR, NORMAL S1S2, NO JVD, pulses present bilaterally CHEST/LUNGS: CTA B, Symmetrical chest expansion, good air entry bilaterally GI/Abdomen: soft, NTND, good bowel sounds, no guarding or rebound /Bladder: no suprapubic tenderness, no CVA or paraspinal tenderness, buttock abscess with surrounding cellulitis present, softer today EXT/Skin: no c/c/e, no obvious rash, head to ankles tattoos MSK: FROM x 4 Neuro: CN 2-12 grossly intact, no new focal deficits Psych: calm - Constitutional Vitals: Temp Pulse Resp BP Pulse Ox 98.5 F 71 18 97/64 98 09/03/17 07:46 09/03/17 07:46 09/03/17 07:46 09/03/17 07:46 09/03/17 10:00 General appearance: Absent: mild distress Results - Labs CBC & Chem 7: 09/03/17 06:53 09/03/17 06:53 Labs: Laboratory Last Values WBC 11.1 K/mm3 (4.5-11.0) H 09/03/17 06:53 RBC 3.94 M/mm3 (3.65-5.03) 09/03/17 06:53 Hgb 11.4 gm/dl (10.1-14.3) 09/03/17 06:53 Hct 34.5 % (30.3-42.9) D 09/03/17 06:53 MCV 88 fl (79-97) 09/03/17 06:53 MCH 29 pg (28-32) 09/03/17 06:53 MCHC 33 % (30-34) 09/03/17 06:53 RDW 14.3 % (13.2-15.2) 09/03/17 06:53 Plt Count 379 K/mm3 (140-440) 09/03/17 06:53 Lymph % (Auto) 16.7 % (13.4-35.0) 09/01/17 01:41 [place] % (Auto) 5.8 % (0.0-7.3) 09/01/17 01:41 Eos % (Auto) 0.3 % (0.0-4.3) 09/01/17 01:41 Baso % (Auto) 1.3 % (0.0-1.8) 09/01/17 01:41 Lymph # 3.1 K/mm3 (1.2-5.4) 09/01/17 01:41 [place] # 1.1 K/mm3 (0.0-0.8) H 09/01/17 01:41 Eos # 0.1 K/mm3 (0.0-0.4) 09/01/17 01:41 Baso # 0.2 K/mm3 (0.0-0.1) H 09/01/17 01:41 Seg Neutrophils % 75.9 % (40.0-70.0) H 09/01/17 01:41 Seg Neutrophils # 13.9 K/mm3 (1.8-7.7) H 09/01/17 01:41 PT 13.3 Sec. (12.2-14.9) 09/01/17 11:01 INR 0.96 (0.87-1.13) 09/01/17 11:01 Sodium 142 mmol/L (137-145) D 09/03/17 06:53 Potassium 4.1 mmol/L (3.6-5.0) 09/03/17 06:53 Chloride 100.2 mmol/L (98-107) 09/03/17 06:53 Carbon Dioxide 31 mmol/L (22-30) H 09/03/17 06:53 Anion Gap 15 mmol/L 09/03/17 06:53 BUN 7 mg/dL (7-17) 09/03/17 06:53 Creatinine 0.6 mg/dL (0.7-1.2) L 09/03/17 06:53 Estimated GFR > 60 ml/min 09/03/17 06:53 BUN/Creatinine Ratio 12 % 09/03/17 06:53 Glucose 158 mg/dL (65-100) H 09/03/17 06:53 POC Glucose 216 (70-105) H 09/03/17 11:00 Hemoglobin A1c 10.1 % (4-6) H 09/02/17 01:41 Lactic Acid 1.60 mmol/L (0.7-2.0) 09/01/17 23:30 Calcium 8.7 mg/dL (8.4-10.2) 09/03/17 06:53 Total Bilirubin 0.50 mg/dL (0.1-1.2) 09/01/17 11:01 Direct Bilirubin < 0.2 mg/dL (0-0.2) 09/01/17 11:01 Indirect Bilirubin 0.3 mg/dL 09/01/17 11:01 AST 8 units/L (5-40) 09/01/17 11:01 ALT 12 units/L (7-56) 09/01/17 11:01 Alkaline Phosphatase 116 units/L (35-129) 09/01/17 11:01 Total Protein 7.4 g/dL (6.3-8.2) 09/01/17 11:01 Albumin 3.9 g/dL (3.9-5) 09/01/17 11:01 Albumin/Globulin Ratio 1.1 % 09/01/17 11:01 HCG, Qual Negative (Negative) 09/01/17 11:53 Urine Color Yellow (Yellow) 09/01/17 13:31 Urine Turbidity Clear (Clear) 09/01/17 13:31 Urine pH 6.0 (5.0-7.0) 09/01/17 13:31 Ur Specific [place] 1.023 (1.003-1.030) 09/01/17 13:31 Urine Protein <15 mg/dl mg/dL (Negative) 09/01/17 13:31 Urine Glucose (UA) >=500 mg/dL (Negative) 09/01/17 13:31 Urine Ketones Neg mg/dL (Negative) 09/01/17 13:31 Urine Blood Neg (Negative) 09/01/17 13:31 Urine Nitrite Neg (Negative) 09/01/17 13:31 Urine Bilirubin Neg (Negative) 09/01/17 13:31 Urine Urobilinogen < 2.0 mg/dL (<2.0) 09/01/17 13:31 Ur Leukocyte Esterase Mod (Negative) 09/01/17 13:31 Urine WBC (Auto) 33.0 /HPF (0.0-6.0) H 09/01/17 13:31 Urine RBC (Auto) 7.0 /HPF (0.0-6.0) 09/01/17 13:31 U Epithel Cells (Auto) 14.0 /HPF (0-13.0) H 09/01/17 13:31 Urine Bacteria (Auto) 1+ /HPF (Negative) 09/01/17 13:31 Urine Mucus Few /HPF 09/01/17 13:31 Urine HCG, Qual Negative (Negative) 09/01/17 13:31 Urine Opiates Screen Presumptive negative 09/01/17 13:31 Urine Methadone Screen Presumptive negative 09/01/17 13:31 Ur Barbiturates Screen Presumptive negative 09/01/17 13:31 Ur Phencyclidine Scrn Presumptive negative 09/01/17 13:31 Ur Amphetamines Screen Presumptive negative 09/01/17 13:31 U Benzodiazepines Scrn Presumptive positive 09/01/17 13:31 Urine Cocaine Screen Presumptive positive 09/01/17 13:31 U Marijuana (THC) Screen Presumptive negative 09/01/17 13:31 Drugs of Abuse Note Disclamer 09/01/17 13:31
--- NOTE | 2017-09-03 13:22 | Discharge Summary ---
<LANCECRUZ R - Last Filed: 09/03/17 13:18> Providers - Providers Date of Admission: 09/01/17 14:37 Date of discharge: 09/03/17 Attending physician: CRUZ LUCAS 09/01/17 11:12 Consult to Physician [CONS] Urgent Consulting Provider: DASHA GRIGGS Reason For Exam: Perirectal vs Perianal abscess, DM Place consult to:: SURG Notified:: yes 09/03/17 00:20 Consult to Wound/ET Nurse [CONS] Routine Reason For Exam: wound eval Primary care physician: BARRON MARKHAM Hospitalization Condition: Stable Hospital course: Patient is a 32-year-old woman with a history of multiple tattoos, obesity BMI 41.1 who presented with buttock abscess. 09/01/2017 CT abdomen and pelvis with IV contrast reported as Impressions: Left perirectal inflammation without evidence of abscess. 2. Left vaginal/ urethral inflammation. 3. Left ovarian enlargement most likely cyst. pCXR Normal portable chest. 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 -UTI: treat with abx, follow cultures -Cocaine and BZD in UDS, mother worried about "labeling" her daughter a drug addict instead of treating her daughter's addiction it appears -Uncontrolled DM with hyperglycemia, hyposomolar with hyponatremia, poa: treat with insulin, ivf, get a1c==>10.1 very poor control, diet counselor on compliance done. -DVT prophylaxis: scd and sq heparin 09/03/2017: It appears Wound care nurse has not come to evaluate; therefore, I will order wound cultures. The IV in the hand is not in a good location and it is causing some discomfort, will need at least 2 more days of iv abx; therefore , will order PICC line. Continue sitz bath. Ordered urine and wound cultures. D/w Dr. Griggs, he evaluated the wound and she can go home on oral Bactrim, which will also cover uti. Then I d/w patient again. Her main issue will be compliance and illegal drug use DM is a new diagnosis per patient. Will discharge home on Metformin Disposition: DC-01 TO HOME OR SELFCARE Time spent for discharge: 35 minutes Core Measure Documentation - Palliative Care Palliative Care/ Comfort Measures: Not Applicable - Core Measures Any of the following diagnoses?: none - VTE Discharge Requirements Deep Vein Thrombosis/Pulmonary Embolism Present on Admission: No Has pt received <5 days of overlap therapy or INR<2.0: No Anticoagulant overlap therapy prescribed at discharge: No Contraindication No Overlap Therapy order at DC: Not Indicated Exam - Physical Exam Narrative exam: GEN: WDWN, NAD, AWAKE, ALERT, ORIENTATED 3 HEENT: NCAT, EOMI, PERRL, OP Clear NECK: supple, no adenopathy, no thyromegaly, no JVD CVS/HEART: RRR, NORMAL S1S2, NO JVD, pulses present bilaterally CHEST/LUNGS: CTA B, Symmetrical chest expansion, good air entry bilaterally GI/Abdomen: soft, NTND, good bowel sounds, no guarding or rebound /Bladder: no suprapubic tenderness, no CVA or paraspinal tenderness, buttock abscess with surrounding cellulitis present, softer today EXT/Skin: no c/c/e, no obvious rash, head to ankles tattoos MSK: FROM x 4 Neuro: CN 2-12 grossly intact, no new focal deficits Psych: calm - Constitutional Vitals: Temp Pulse Resp BP Pulse Ox 98.5 F 71 18 97/64 98 09/03/17 07:46 09/03/17 07:46 09/03/17 07:46 09/03/17 07:46 09/03/17 10:00 Plan Activity: other (no strenous activity until cleared by Surgeon) Diet: diabetic Wound: per wound nurse instructions (Sitz bath as instructed) Special Instructions: record blood sugar diary (three times a day), smoking cessation Follow up with: BARRON MARKHAM MD [Primary Care Provider] - 3-5 Days DASHA GRIGGS MD [Staff Physician] - 7 Days Prescriptions: metFORMIN [Glucophage] 500 mg PO BID #60 tablet Sulfamethoxazole/Trimethoprim [Bactrim DS TAB] 1 each PO BID #20 tablet Other Discharge Orders: Glucometer (Amb) Location: Determined By Patient Glucometer supplies[Amb] Location: Determined By Patient <AUDREY BERNAL - Last Filed: 09/03/17 14:31> Providers - Providers Date of Admission: 09/01/17 14:37 Attending physician: CRUZ LUCAS 09/01/17 11:12 Consult to Physician [CONS] Urgent Consulting Provider: DASHA GRIGGS Reason For Exam: Perirectal vs Perianal abscess, DM Place consult to:: SURG Notified:: yes 09/03/17 00:20 Consult to Wound/ET Nurse [CONS] Routine Reason For Exam: wound eval Primary care physician: BARRON MARKHAM Exam - Constitutional Vitals: Temp Pulse Resp BP Pulse Ox 98.5 F 71 18 97/64 98 09/03/17 07:46 09/03/17 07:46 09/03/17 07:46 09/03/17 07:46 09/03/17 10:00 Plan Wound: other (Keep open to air. Perform sitz baths 3-4 times per day and after every bowel movement to keep wound clean. )
--- NOTE | 2017-09-03 14:30 | Progress Note ---
Assessment and Plan 32 yo F with 1. perianal abscess s/p incision and drainage at bedside, POD 2 Plan: 1. Patient instructed on performing sitz baths 3-4 times per day and after every bowel movement 2. PO bactrim for 10 days on discharge 3. Patient should follow up with Dr. Griggs in 2 weeks for outpatient follow up [address] [phone] Subjective Date of service: 09/03/17 Narrative: Pt seen and examined. No acute complaints or overnight events. Her pain is controlled. No f/c. Objective Vital Signs - 12hr 09/03/17 09/03/17 07:46 10:00 Temperature 98.5 F Pulse Rate 71 Respiratory 18 Rate Blood Pressure 97/64 O2 Sat by Pulse 97 98 Oximetry - General physical appearance Narrative Exam: Gen: AAOx3. NAD Rectal: Perianal incision c/d/i. No fluctuance, induration, or additional drainage. - Labs 09/03/17 06:53 09/03/17 06:53 Diabetes panel 09/02/17 09/03/17 Range/Units 01:41 06:53 Sodium 142 D (137-145) mmol/L Potassium 4.1 (3.6-5.0) mmol/L Chloride 100.2 (98-107) mmol/L Carbon Dioxide 31 H (22-30) mmol/L BUN 7 (7-17) mg/dL Creatinine 0.6 L (0.7-1.2) mg/dL Glucose 158 H (65-100) mg/dL Hemoglobin A1c 10.1 H (4-6) % Calcium 8.7 (8.4-10.2) mg/dL Calcium panel 09/03/17 Range/Units 06:53 Calcium 8.7 (8.4-10.2) mg/dL Pituitary panel 09/03/17 Range/Units 06:53 Sodium 142 D (137-145) mmol/L Potassium 4.1 (3.6-5.0) mmol/L Chloride 100.2 (98-107) mmol/L Carbon Dioxide 31 H (22-30) mmol/L BUN 7 (7-17) mg/dL Creatinine 0.6 L (0.7-1.2) mg/dL Glucose 158 H (65-100) mg/dL Calcium 8.7 (8.4-10.2) mg/dL Adrenal panel 09/03/17 Range/Units 06:53 Sodium 142 D (137-145) mmol/L Potassium 4.1 (3.6-5.0) mmol/L Chloride 100.2 (98-107) mmol/L Carbon Dioxide 31 H (22-30) mmol/L BUN 7 (7-17) mg/dL Creatinine 0.6 L (0.7-1.2) mg/dL Glucose 158 H (65-100) mg/dL Calcium 8.7 (8.4-10.2) mg/dL
[2017-09-03] MEDS ORDERED: HEPARIN SUB-Q SCH (17:31)
== END 2017-09-03 15:00 | disposition home or self-care (01) | DRG 854 ==
LOC: ED 01:04 → CC1 14:37 → 3A 19:46
PROVIDERS: ADMIT Internal Medicine; ATTEND Internal Medicine
PROC: 0D9QXZZ Drainage of Anus, External Approach (ICD-10-PCS; principal; 2017-09-01)
DX: A41.9 Sepsis, unspecified organism (principal); N39.0 Urinary tract infection, site not specified; L02.31 Cutaneous abscess of buttock; L03.315 Cellulitis of perineum; E87.1 Hypo-osmolality and hyponatremia; F14.20 Cocaine dependence, uncomplicated; F13.20 Sedative, hypnotic or anxiolytic dependence, uncomplicated; I10 Essential (primary) hypertension; R56.9 Unspecified convulsions; F17.200 Nicotine dependence, unspecified, uncomplicated; E11.65 Type 2 diabetes mellitus with hyperglycemia; T40.5X5A Adverse effect of cocaine, initial encounter; T42.75XA Adverse effect of unspecified antiepileptic and sedative-hypnotic drugs, initial encounter; Y92.89 Other specified places as the place of occurrence of the external cause
CPT/HCPCS: 36415; 71045; 74177; 80048; 80074; 80307; 81001; 81025; 82140; 82962; 83036; 84703; 85025; 85027; 85610; 87040; 93005; 93010; 96361; 96374; 96375; J1200; J1815; J2270; J2405; J2543; J3370; J7030; J7040; Q9967